=== PATIENT | female | born 1960 | race Caucasian/White ===

== ENCOUNTER 2019-10-05 20:02 | Emergency (ER) | payer BC ==
[2019-10-05] MEDS ORDERED: BACIGUENT PACKET ONE (21:28)
--- NOTE | 2019-10-05 21:28 | ERPHSYRPT ---
- History of Present Illness Time Seen by Provider: 10/05/19 20:15 Source: patient Exam Limitations: no limitations Patient Subjective Stated Complaint: pt states while woriking on his tiller, he cut his lt thumb Triage Nursing Assessment: pt alert and oriented, answers questions approp. pt ambulatory with steady gait ntoed. respirations nonlabored with lungs cta. skin warm and dry. laceration approx 3mc to lt thumb with minimal bleeding noted at this time. Physician History: Rey is right thumb on a tiller while working at home. Just prior to arrival Occurred: just prior to arrival Method of Injury: incised Quality: aching Severity of Pain-Max: moderate Severity of Pain-Current: moderate Extremities Pain Location: thumb: right (0.5 cm laceration over the dorsum of the extensor surface of the right thumb ) Modifying Factors: Improves With: nothing Associated Symptoms: none Allergies/Adverse Reactions: ibuprofen Allergy (Intermediate, Verified 10/05/19 20:38) Swelling of Face Home Medications: Lisinopril 10 mg [Zestril 10 MG] 10 mg PO BID 10/05/19 [History] Metoprolol Tartrate 25 mg [Lopressor 25MG Tab] 25 mg PO DAILY 10/05/19 [ History] Hx Tetanus, Diphtheria Vaccination/Date Given: No (unsure) Hx Influenza Vaccination/Date Given: No Hx Pneumococcal Vaccination/Date Given: No Immunizations Up to Date: No Travel Risk - International Travel Have you traveled outside of the country in past 3 weeks: No Have you or anyone close to you been diagnosed with or: No Do your reside in a community with a known COVID-19 case?: Yes If Yes where:: [facility] - Coronavirus Screening Has patient experienced Coronavirus symptoms: No - Review of Systems Constitutional: No Fever, No Chills Eyes: No Symptoms Ears, Nose, & Throat: No Symptoms Respiratory: No Cough, No Dyspnea Cardiac: No Chest Pain, No Edema, No Syncope Abdominal/Gastrointestinal: No Abdominal Pain, No Nausea, No Vomiting, No Diarrhea Genitourinary Symptoms: No Dysuria Musculoskeletal: No Back Pain, No Neck Pain Skin: No Rash Neurological: No Dizziness, No Focal Weakness, No Sensory Changes Psychological: No Symptoms Endocrine: No Symptoms All Other Systems: Reviewed and Negative - Past Medical History Pertinent Past Medical History: Yes Cardiac History: Hypertension - Past Surgical History Past Surgical History: Yes Other Surgical History: back surgery, toe amuptation after crush injury - Social History Smoking Status: Never smoker Exposure to second hand smoke: No Drug Use: none Patient Lives Alone: No - Nursing Vital Signs Nursing Vital Signs: Initial Vital Signs Temperature 98.2 F 10/05/19 20:09 Pulse Rate 105 H 10/05/19 20:09 Respiratory Rate 18 10/05/19 20:09 Blood Pressure 127/75 10/05/19 20:09 O2 Sat by Pulse Oximetry 95 10/05/19 20:09 Pain Scale Pain Intensity 4 - Physical Exam General Appearance: alert Eyes, Ears, Nose, Throat Exam: moist mucous membranes Neck Exam: non-tender, supple Cardiovascular/Respiratory Exam: chest non-tender, normal breath sounds, regular rate/rhythm, no respiratory distress Abdominal Exam: non-tender, No guarding Back Exam: normal inspection, No vertebral tenderness Hand Exam: laceration (1.5 cm laceration over the first phalanx of the right thumb no vascular tendon function is intact exploration of the wound shows perhaps a little abrasion to the top of the extensor tendon.) Neuro/Tendon Exam: normal sensation, normal motor functions Mental Status Exam: alert, oriented x 3, cooperative Skin Exam: normal color, warm, dry SpO2: 95 Procedures - Laceration/Wound Repair Right Upper Finger Wound Location: Right, hand Wound Length (cm): 1.5 Wound's Depth, Shape: superficial, linear Wound Explored: Wound was scrubbed with a scrub brush and sponge and irrigated copiously Irrigated: Yes Hibiclens Prep: Yes Anesthesia: 1% Lidocaine Volume Anesthetic (ccs): 2 Wound Debrided: minimal Wound Repaired With: sutures Suture Size/Type: 5-0 Number of Sutures: 4 Layer Closure?: No Sterile Dressing Applied?: Yes Splint Applied?: Yes Sling Applied?: No - Course Nursing assessment & vital signs reviewed: Yes - Progress Progress: improved - Departure Departure Disposition: Home Clinical Impression: Laceration of right thumb Condition: Stable Critical Care Time: No Referrals: JOSHUA ABBASI [Primary Care Provider] - Instructions: Laceration Repair With Stitches (DC) Prescriptions: Amoxicillin/Potassium Clav [Augmentin 875-125 Tablet] 875 mg PO BID 10 Days #20 tablet Hydrocodone/APAP 5-325 Tab^^^ [[place] 5-325 Tablet^^^] 1 each PO Q6H 3 Days #10 tablet MDD 6
[2019-10-05] MEDS ORDERED: Adacel Vial IM ONE ×2 (21:32→21:34)
[2019-10-05] MEDS ORDERED: Augmentin 875-125 Tablet PO ONE (21:46)
[2019-10-05] MEDS ORDERED: NORCO 5/325 MG ONE (21:47)
[2019-10-05] MEDS ORDERED: Augmentin 875-125 Tablet ONE (21:48)
[2019-10-05] MEDS ORDERED: NORCO 5/325 MG PO ONE (21:52)
[2019-10-05] MEDS ORDERED: BACIGUENT PACKET TP ONE (22:06)
[2019-10-05] MEDS ORDERED: XYLOCAINE 1% HCL 20 ML MDV IJ ONE (22:06)
[2019-10-05 22:09] VITALS: BP 136/78; PULSE 75; O2SAT 98
== END 2019-10-05 22:09 | disposition home or self-care (01) ==
LOC: ED 20:02
DX: S61.011A Laceration without foreign body of right thumb without damage to nail, initial encounter (principal); W29.3XXA Contact with powered garden and outdoor hand tools and machinery, initial encounter
CPT/HCPCS: 12001; 90471; 90715; 96372; 99284; A9270-GY

== ENCOUNTER 2025-04-25 10:37 | Day surgery (SDC) | payer OTHER ==
[2025-04-25] MEDS ORDERED: CEFAZOLIN SODIUM ONE (10:44)
[2025-04-25] MEDS ORDERED: celeBREX 100 MG ONE (10:44)
[2025-04-25] MEDS ORDERED: Lactated Ringers 1,000 ML IV ONE (10:44)
[2025-04-25] MEDS ORDERED: NEURONTIN ONE (10:44)
[2025-04-25] MEDS ORDERED: TYLENOL EXTRA STRENGTH 500 MG ONE (10:44)
[2025-04-25] MEDS ORDERED: Decadron 4 MG ONE (10:44)
[2025-04-25] MEDS: TYLENOL EXTRA STRENGTH 500 MG PO ONE (10:49)
[2025-04-25] MEDS: Lactated Ringers 1,000 ML IV SCH (10:49)
[2025-04-25] MEDS: Decadron 4 MG PO ONE (10:49)
[2025-04-25] MEDS: NEURONTIN PO ONE (10:50)
[2025-04-25] MEDS: Transderm Scop 1.5MG Patch TOP PRN (11:00)
[2025-04-25 11:45] LABS: Calcium 9.4 mg/dL (8.4-10.2); Carbon Dioxide 22.0 mmol/L (22-30); Creatinine 1 0.97 mg/dL (0.66-1.25); EST GLOMERULAR FILTRATION RATE 87.2 ML/MIN; Glucose 99.0 mg/dL (74-106); Potassium 4.4 mmol/L (3.5-5.1)
[2025-04-25] MEDS ORDERED: Sensorcaine 0.25% 10 ML ONE (12:07)
[2025-04-25] MEDS ORDERED: propofoL IV ONE (13:16)
[2025-04-25] MEDS ORDERED: SUBLIMAZE 100 MCG/2 ML ONE ×2 (13:17→14:13)
[2025-04-25] MEDS ORDERED: Xylocaine-Mpf 2% 5 Ml Vial ONE (13:17)
[2025-04-25] MEDS ORDERED: ROCURONIUM BROMIDE IV ONE ×2 (13:17→14:06)
[2025-04-25] MEDS ORDERED: PHENYLEPHRINE HCL ONE (13:36)
[2025-04-25] MEDS ORDERED: BRIDION 200MG/2ML IV ONE (13:46)
[2025-04-25] MEDS ORDERED: DEXMEDETOMIDINE 80 MCG/20ML-NS IV ONE (13:51)
[2025-04-25] MEDS ORDERED: Zofran 4 MG/2 ML VIAL ONE ×2 (13:54→15:52)
[2025-04-25] MEDS ORDERED: TORAdol 30 mg Injection ONE (14:28)
[2025-04-25] MEDS ORDERED: DILAUDID 0.5 MG/0.5 ML SYRINGE ONE ×2 (14:28→15:25)
[2025-04-25 16:05] VITALS: RESP 18; TEMP 97.3
[2025-04-25 16:22] VITALS: BP 104/71; PULSE 80
[2025-04-25 16:25] VITALS: O2SAT 93
--- NOTE | 2025-04-26 09:24 | OP ---
DATE OF PROCEDURE: 04/25/2025 [id number] PREOPERATIVE DIAGNOSIS: Umbilical hernia. POSTOPERATIVE DIAGNOSIS: Umbilical hernia. PROCEDURE: Laparoscopic repair of umbilical hernia defect measuring under 15 mm in size, intraperitoneal onlay mesh. SURGEON: Mandeep South MD ANESTHESIA: General. ESTIMATED BLOOD LOSS: Minimal. PATIENT CONDITION: Stable. COMPLICATIONS: None. SPECIMEN: Hernia sac. INDICATIONS: The patient presents with symptomatic umbilical hernia, reducible on exam. Discussed with the patient the risk of infection, bleeding, injury to nearby structure, hernia recurrence. This would be amenable to a primary repair if he desires that and that would forgo any risk of any mesh complication. Does have an increased risk of recurrence, but discussed with him either primary repair or repair with mesh knowing there is a risk of mesh complication down the road and he wants to proceed with the more durable mesh repair. Also risk of injury to nearby structure and he would like to proceed. FINDINGS: A 15 mm defect, IPOM. DESCRIPTION OF PROCEDURE AND FINDINGS: Patient was brought to the operating room, general anesthesia induced, routinely positioned, prepped, draped, time-out performed, received preoperative antibiotic. Veress needle inserted in the left upper quadrant. Pneumoperitoneum established. The 5 mm Optiview trocar placed left upper quadrant, abdomen surveyed. An additional 5 mm trocar was placed left mid and left lower quadrants. The preperitoneal space was entered and the preperitoneal fat that is in the hernia, as well as the hernia sac, are completely reduced down and that preperitoneal space was freed up for 5 cm in all directions and excised with the sac that was later removed and sent as specimen. The supraumbilical incision was then made. The sac was dissected off the umbilical stalk and entered. The 11 mm trocar was placed through the hernia defect. It was about 15 mm in size. The preperitoneal fat sac is removed, sent as hernia sac. The Echo 11 cm coated mesh was then placed intraabdominally without the positioning system and the fascia was then reapproximated with 0 PDS interrupted sutures. The mesh was brought up against the abdominal wall, tacked in place with the SorbaFix absorbable tacker at a pneumoperitoneum of 8. That was all flat, hemostatic, satisfactory. The omentum was then brought up between the mesh and the bowel and deflated under direct visualization. The trocars were removed. Marcaine had been injected. Skin was closed with 4-0 Vicryl suture, Steri-Strips. Sterile dressing was applied. All counts were correct. Patient tolerated the procedure well. Plan is for extubation.
== END 2025-04-25 16:40 | disposition home or self-care (01) ==
LOC: EDSEX → SDC 10:37
PROVIDERS: ATTEND Surgery
DX: K42.9 Umbilical hernia without obstruction or gangrene (principal)

== ENCOUNTER 2025-04-29 19:20 | Emergency (ER) | payer OTHER ==
[2025-04-29 19:49] VITALS: RESP 18; TEMP 98
--- NOTE | 2025-04-29 20:01 | ERPHSYRPT ---
- History of Present Illness Patient Subjective Stated Complaint: pt reports hernia surgery on 04/25/25, states he is now constipated and having abominal pain. pt reports he called Dr. 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 Triage Nursing Assessment: pt is aox3, pupils perrl, afebrile, resps easy and non labored, cap refill < 3 seconds, radial pulses strong and equal, pt abdomen is round and slightly distended, bowel sounds are present and normoactive, surgical dressings are present and CDI. slight bruising noted around the umbilicus. Physician History: Constipation, patient is postop day 4 after having an umbilical hernia repaired, he has been taking his home pain medications 2 a day, he is feels very full and feels as though he needs to have a bowel movement but is unable to pass any stool, He called the nurse at the surgeons office and they recommended that he try some laxatives that does not seem to be helping Timing/Duration: day(s) (4) Abdominal Pain Onset Location: generalized abdomen Pain Radiation: no radiation Severity of Pain-Max: moderate Severity of Pain-Current: moderate Allergies/Adverse Reactions: ibuprofen Allergy (Intermediate, Verified 04/29/25 19:49) Swelling of Face Home Medications: Lisinopril 10 mg [Zestril 10 MG] 10 mg PO BID 10/05/19 [History] Metoprolol Tartrate 25 mg [Lopressor 25MG Tab] 12.5 mg PO DAILY 10/05/19 [History] Ezetimibe 2.5 mg PO DAILY 04/22/25 [History] Hx Tetanus, Diphtheria Vaccination/Date Given: Yes Hx Influenza Vaccination/Date Given: Yes Hx Pneumococcal Vaccination/Date Given: Yes Immunizations Up to Date: No Travel Risk - International Travel Have you traveled outside of the country in past 3 weeks: No - Emerging Infectious Disease Are you exhibiting symptoms associated with any current EIDs: No - Past Medical History Pertinent Past Medical History: Yes Neurological History: No Pertinent History ENT History: No Pertinent History Cardiac History: High Cholesterol, Hypertension Respiratory History: No Pertinent History Endocrine Medical History: No Pertinent History Musculoskeletal History: Other GI Medical History: No Pertinent History History: No Pertinent History Psycho-Social History: No Pertinent History Male Reproductive Disorders: No Pertinent History Other Medical History: Spine problems, sees [facility] Guzman at [facility] - Past Surgical History Past Surgical History: Yes Neuro Surgical History: No Pertinent History Cardiac: Cardiac Catheterization Respiratory: No Pertinent History Gastrointestinal: No Pertinent History Genitourinary: No Pertinent History Musculoskeletal: No Pertinent History Male Surgical History: No Pertinent History Other Surgical History: back surgery, toe amuptation after crush injury - Social History Smoking Status: Never smoker Exposure to second hand smoke: No Drug Use: none - Social Determinants of Health Will the patient participate in the screening: Yes Do you worry about a steady place to live?: No Do you have any problems with any of the following?: No known problems In the past 12 months,have you had to go without utilities?: No Transportation Issues: No Has anyone in your support network made you feel unsafe?: No Have you or anyone in your house had to go w/o enough food: No - Nursing Vital Signs Nursing Vital Signs: Initial Vital Signs Pulse Rate 84 04/29/25 19:31 Respiratory Rate 20 04/29/25 19:31 Blood Pressure 133/93 04/29/25 19:31 O2 Sat by Pulse Oximetry 94 L 04/29/25 19:31 Pain Scale Pain Intensity 6 - Physical Exam General Appearance: no apparent distress, alert Eye Exam: PERRL/EOMI, eyes nml inspection Ears, Nose, Throat Exam: normal ENT inspection, pharynx normal, moist mucous membranes Neck Exam: normal inspection, non-tender, supple, full range of motion Respiratory Exam: normal breath sounds, lungs clear, No respiratory distress Cardiovascular Exam: regular rate/rhythm, normal heart sounds Gastrointestinal/Abdomen Exam: soft, tenderness (Mild diffuse tenderness), other (Surgical incision has a dressing over it it is tender to palpation), No mass, No guarding, No rebound Back Exam: normal inspection, normal range of motion, No CVA tenderness, No vertebral tenderness Extremity Exam: normal inspection, normal range of motion, pelvis stable Neurologic Exam: alert, oriented x 3, cooperative, normal mood/affect, nml cerebellar function, sensation nml, No motor deficits Skin Exam: normal color, warm, dry SpO2 Interpretation: normal SpO2: 95 Ordered Tests: Active Orders 24 hr Category Date Time Status Enema STAT Care 10/27/25 21:24 Active KUB Stat Exams 04/29/25 19:43 Taken - Progress Progress Note: 04/29/25 22:07 Consult to general surgery, case discussed with Dr. South, he recommended that the patient may take more laxative or may consider having an enema, This was discussed with the patient, and was decided that he would try a mineral oil fleets enema, he did receive the enema and held it for 20 minutes and he did have a bowel movement in the emergency department, Recommend that he try to increase fiber in his diet, continue exercising is much as he can tolerate, and follow-up to Dr. South as scheduled - Departure Departure Disposition: Home Clinical Impression: Constipation Qualifiers: Constipation type: slow transit constipation Qualified Code(s): K59.01 - Slow transit constipation Condition: Stable Critical Care Time: No Referrals: SAMI SOUTH MD [ACTIVE STAFF, GENERAL SURGERY] - Follow up/PCP as directed Referral Note: as scheduled Instructions: Constipation, Adult (DC) Additional Instructions: Is scheduled consider using MiraLAX( 8 oz ( 16 TBs) in 32 oz of water or Zero Gatorade)
[2025-04-29 22:10] VITALS: BP 114/74; PULSE 81
[2025-04-29 22:12] VITALS: O2SAT 95
--- NOTE | 2025-04-30 08:50 | XRAY ---
Indication: Constipation. Comparison: None KUB nonacute nonobstructed with moderate scattered colonic fecal debris including rectum. Solid organs unremarkable. Osseous structures intact with minimal multilevel degenerative spondylosis and minimal scoliosis.
== END 2025-04-29 22:26 | disposition home or self-care (01) ==
LOC: ED 19:20
DX: K59.01 Slow transit constipation (principal); I10 Essential (primary) hypertension; Z79.899 Other long term (current) drug therapy